=== PATIENT | male | born 1975 | race Caucasian/White ===

== ENCOUNTER 2021-02-17 15:00 | Outpatient (CLI) | payer BC, SELFPAY | END 2021-02-17 15:01 | disposition home or self-care (01) | LOC: SLEEP 02-19 16:29 | PROVIDERS: PCP Nurse Practitioner Family; Visit Provider Internal Medicine Cardiovascular Disease | DX: G47.10 Hypersomnia, unspecified (principal); G47.30 Sleep apnea, unspecified | CPT/HCPCS: G0399 ==

== ENCOUNTER 2023-01-29 15:26 | Inpatient (IN) | payer BC, SELFPAY ==
[2023-01-29] VITALS (10 sets, daily range): BP systolic 99–170; BP diastolic 76–113; PULSE 101–141; RESP 15–36; TEMP 36.6–37.1; O2SAT 95–96; BMI 46.7
--- NOTE | 2023-01-29 15:31 | ECG_ITS ---
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 Measurements Intervals [place] Rate: 140 P: 0 VT: 0 QRS: 53 QRSD: 116 T: -72 QT: 301 QTc: 461 Interpretive Statements ATRIAL FLUTTER/TACHYCARDIA WITH RAPID VENTRICULAR RESPONSE INDETERMINATE AXIS MODERATE INTRAVENTRICULAR CONDUCTION DELAY [110+ ms QRS DURATION] Electronically Signed On 01-29-2023 15:36:52 CDT by Gurjit Samuel M.D. [email or web address]/store/[id number]
--- NOTE | 2023-01-29 15:43 | XRR_ITS ---
PROCEDURE INFORMATION: Exam: XR Chest Exam date and time: 01/29/2023 3:50 PM Age: 47 years old Clinical indication: Cough and dyspnea; Additional info: Dyspnea/cough TECHNIQUE: Imaging protocol: Radiologic exam of the chest. Views: 1 view. COMPARISON: CT cervical spin wo con* [id number] 04/17/2016 6:11 PM FINDINGS: Lungs: Unremarkable. No consolidation. Pleural spaces: Unremarkable. No pleural effusion. No pneumothorax. Heart/Mediastinum: Unremarkable. No cardiomegaly. Bones/joints: Unremarkable. XR/XR chest 1V portable [id number] IMPRESSION: No acute findings.
--- NOTE | 2023-01-29 15:44 | ED_ITS ---
HPI - Arrhythmia/Palpitations General: Chief Complaint: Arrhythmia/Palpitations Stated Complaint: chest pain Time Seen by Provider: 01/29/23 15:40 Source: patient Mode of arrival: ambulatory History of Present Illness: 47-year-old male presents to the emergency room with complaint of rapid heart rate accompanied intermittently with chest pain. He has had this on and off for about 3 days now. He went to the clinic today they evaluated this and EKG found to be in A-fib with RVR and referred him to the emergency room when he arrived here via ambulance he was still in A-fib with a rate in the 140s. He was given nitro and baby aspirin in route no change in symptoms. He has no known history of arrhythmias he is not on any. He is Anticoagulants were negative inotropes. Patient was a smoker and is diabetic. He also is morbidly obese and has a history of obstructive sleep apnea MD complaint: rapid heart beat and heart racing Onset (ago): day(s) Duration: constant Severity: severe Context: occurred during rest Arrhythmia history: atrial fibrillation Associated symptoms: Deny anxiety, cough, diaphoresis, muscle cramps, nausea, paresthesias, pre-syncope, sense of impending doom, short of breath, syncope or vomiting Review of Systems Const: Denies: diaphoresis Card: Denies: syncope or pre-syncope Resp: Denies: dyspnea GI: Denies: nausea or vomiting : Denies: dysuria, urinary frequency or urinary urgency Musc: Denies: muscle cramps Skin/Breast: Denies: rash Psych: Denies: anxiety [facility] ED PFSH: Medical History (Updated 02/08/23 @ 14:23 by Brayden Israel DO) Chronic bronchitis Diabetes mellitus Dyslipidemia Edema Elevated blood pressure reading in office without diagnosis of hypertension Essential hypertension Fatigue GERD (gastroesophageal reflux disease) Hypersomnia with sleep apnea Obesity JAHAIRA treated with BiPAP Social History Smoking and tobacco/nicotine status: current every day tobacco/nicotine user Alcohol intake: never Substance/Drug Use: never Physical Exam Const: GENERAL APPEARANCE: cooperative and comfortable ORIENTATION/CONSCIOUSNESS: Yes awake, Yes oriented to person, Yes oriented to place and Yes oriented to time HENMT: COMMON NORMALS: normocephalic, atraumatic and hearing grossly normal bilaterally HEAD & SCALP: normocephalic and atraumatic Resp: COMMON NORMALS: normal respiratory effort, No retractions, No use of accessory muscles and clear to auscultation bilaterally AUSCULTATION: clear to auscultation bilaterally Cardio: COMMON NORMALS: No murmurs present (Cardio) RATE: tachycardic RHYTHM: abnormal rhythm irregularly irregular GI: COMMON NORMALS: Soft to palpation and No hepatosplenomegaly present AUSCULTATION: Yes normoactive bowel sounds PALPATION: Yes Soft to palpation, No Tenderness to palpation present (GI), No Guarding due to palpation present (GI) and Yes No hepatosplenomegaly present Extremity: COMMON NORMALS: normal to inspection, capillary refill normal, no clubbing, cyanosis or edema, no calf tenderness and no pedal edema Neuro: SENSORIUM/ORIENTATION: Yes oriented to person, Yes oriented to place and Yes oriented to time Skin: COMMON NORMALS: no rashes or lesions noted GENERAL SKIN EXAM: no rashes or lesions noted Course Vital Signs: Vital signs: Vital Signs Temperature 98.2 F 01/31/23 12:03 Pulse Rate 70 01/31/23 12:03 Respiratory Rate 17 01/31/23 12:03 Blood Pressure 115/75 01/31/23 12:03 Pulse Oximetry 95 01/31/23 12:03 Oxygen Delivery Me thod Room Air 01/31/23 12:00 Fraction of Inspir ed Oxygen 40 01/30/23 22:25 MDM - Arrhythmia/Palpitations Medical Decision Making A-fib with RVR and did show some improvement with Cardizem but we maxed out and he still not controlled will switch to amiodarone discussed with hospitalist admit orders written Medical Records I reviewed the patient's medical records. Lab Data I reviewed the patient's lab results. 01/30/23 01:36 01/30/23 01:36 Radiology Impressions Chest X-Ray 01/29/23 15:43 IMPRESSION: No acute findings. Laboratory Results WBC 11.75 10^3/uL (3.29-11.43) H 01/29/23 14:52 RBC 5.02 10^6/uL (3.85-5.65) 01/29/23 14:52 Hgb 16.10 g/dL (11.27-16.99) 01/29/23 14:52 Hct 48.1 % (37-53) 01/29/23 14:52 MCV 95.8 fl (82-101) 01/29/23 14:52 MCH 32.1 pg (27-33) 01/29/23 14:52 MCHC 33.5 g/dL (30-55) 01/29/23 14:52 RDW 12.6 % (12.1-15.1) 01/29/23 14:52 Plt Count 213 10^3/cmm (157-399) 01/29/23 14:52 MPV 8.9 fL (7.4-10.4) 01/29/23 14:52 Neut % (Auto) 63.5 % 01/29/23 14:52 Lymph % (Auto) 20.2 % 01/29/23 14:52 [place] % (Auto) 10.0 % 01/29/23 14:52 Eos % (Auto) 5.4 % 01/29/23 14:52 Baso % (Auto) 0.6 % 01/29/23 14:52 Neut # (Auto) 7.46 10^3/uL (1.8-7.7) 01/29/23 14:52 Lymph # (Auto) 2.4 10^3/uL (0.8-4.8) 01/29/23 14:52 [place] # (Auto) 1.2 10^3/uL (0.2-0.9) H 01/29/23 14:52 Eos # (Auto) 0.6 10^3/uL (0.0-0.8) 01/29/23 14:52 Baso # (Auto) 0.1 10^3/uL (0.0-0.1) 01/29/23 14:52 Nucleated RBC % (auto) 0 % 01/29/23 14:52 Nucleated RBCs # 0.0 /100WBC 01/29/23 14:52 D-Dimer <= 0.27 ug/mLFEU (0-0.59) 01/29/23 14:52 Sodium 140 mmol/L (136-145) 01/29/23 14:52 Potassium 4.1 mmol/L (3.5-5.1) 01/29/23 14:52 Chloride 103 mmol/L (98-107) 01/29/23 14:52 Carbon Dioxide 27 mmol/L (22-29) 01/29/23 14:52 Anion Gap 14.1 (5-19) 01/29/23 14:52 BUN 9 mg/dL (6-20) 01/29/23 14:52 Creatinine 0.7 mg/dL (0.7-1.2) 01/29/23 14:52 GFR Calculation 122.0 mL/min (90-130) 01/29/23 14:52 Glucose 133 mg/dL (65-115) H 01/29/23 14:52 Calculated Osmolality 291 mOsm/kg (285-295) 01/29/23 14:52 Calcium 9.3 mg/dL (8.5-10.5) 01/29/23 14:52 Iron 58 ug/dL (59-158) L 01/29/23 14:52 TIBC 290 mcg/dl 01/29/23 14:52 % Saturation 20.0 % (20-50) 01/29/23 14:52 Unsat Iron Binding 232 ug/dL (112-347) 01/29/23 14:52 Total Bilirubin 0.3 mg/dL (0.15-1.2) 01/29/23 14:52 AST 12 U/L (0-40) 01/29/23 14:52 ALT 19 U/L (0-41) 01/29/23 14:52 Alkaline Phosphatase 64 U/L (40-130) 01/29/23 14:52 Troponin T Baseline < 6 ng/L (0-15) 01/29/23 14:52 Total Protein 6.2 g/dL (6.6-8.7) L 01/29/23 14:52 Albumin 4.1 g/dL (3.5-5.2) 01/29/23 14:52 Globulin 2.1 g/dL (1.3-4.6) 01/29/23 14:52 Vitamin B12 293 pg/mL (232-1245) 01/29/23 14:52 TSH 1.55 uIU/mL (0.27-4.20) 01/29/23 14:52 All radiology interpretation(s) finalized by discharge Critical Care Time Critical Care Time: Critical Care Time: Yes Total Critical Care Time: 40 Attestation: The high probability of a clinically significant, sudden or life threatening deterioration of the patient's cardiovascular system(s) required my full and direct attention, intervention and personal management. The critical care time is as shown. This time is in addition to time spent performing any reported procedures but includes the following: [x] Data and vital sign review and interpretation [x] Patient assessment, examination and intervention [x] Documentation [x] Medication orders and management Discharge Plan Discharge Patient Disposition: Admitted As Inpatient Admit Provider: Aman Cabrera Clinical Impression: Atrial fibrillation with rapid ventricular response, JAHAIRA treated with BiPAP, Essential hypertension, Diabetes mellitus Condition: Stable Discharge Diet: Cardiac Discharge Activity: Resume usual activity and Increase activity as tolerated Coding Level of Care Code ED Junior Brand Manager for Luis Eduardo Peralta
[2023-01-29] MEDS: dilTIAZem 5 mg/mL SDV 5 mL 20 MG IVP (15:47)
[2023-01-29] MEDS: dilTIAZem 100 MG in sodium chloride 0.9% (add-van) 100 ML IV (15:54)
[2023-01-29 16:04] LABS: Basophils # 0.1 10^3/uL (0.0-0.1); Basophils % 0.6 %; Eosinophils # 0.6 10^3/uL (0.0-0.8); Eosinophils % 5.4 %; Hematocrit 48.1 % (37-53); Lymphocytes # 2.4 10^3/uL (0.8-4.8); Lymphocytes % 20.2 %; Mean Corpuscular HGB Conc 33.5 g/dL (30-55); Mean Corpuscular Hemoglobin 32.1 pg (27-33); Mean Corpuscular Volume 95.8 fl (82-101); Mean Platelet Volume 8.9 fL (7.4-10.4); Monocytes # 1.2 10^3/uL (0.2-0.9); Neutrophils # 7.46 10^3/uL (1.8-7.7); Neutrophils % 63.5 %; Nucleated Red Blood Cells % 0 %; Platelet Count 213 10^3/cmm (157-399); Red Blood Count 5.02 10^6/uL (3.85-5.65); Red Cell Distribution Width 12.6 % (12.1-15.1); White Blood Count 11.75 10^3/uL (3.29-11.43)
[2023-01-29 16:28] LABS: Troponin(5th) Baseline < 6 ng/L (0-15)
[2023-01-29 16:38] LABS: Alanine Aminotransferase 19 U/L (0-41); Albumin Level 4.1 g/dL (3.5-5.2); Alkaline Phosphatase 64 U/L (40-130); Anion Gap 14.1 (5-19); Aspartate Amino Transferase 12 U/L (0-40); Blood Urea Nitrogen 9 mg/dL (6-20); Calcium 9.3 mg/dL (8.5-10.5); Carbon Dioxide 27 mmol/L (22-29); Chloride 103 mmol/L (98-107); Globulin 2.1 g/dL (1.3-4.6); Glucose 133 mg/dL (65-115); Osmolality Calculated 291 mOsm/kg (285-295); Potassium 4.1 mmol/L (3.5-5.1); Sodium 140 mmol/L (136-145); Thyroid Stimulating Hormone 1.55 uIU/mL (0.27-4.20); Total Bilirubin 0.3 mg/dL (0.15-1.2); Total Protein 6.2 g/dL (6.6-8.7)
--- NOTE | 2023-01-29 16:41 | P.HP_ITS ---
Providers/Chief Complaint Primary Care Provider: Jean Walker Chief Complaint: chest pain History of Present Illness Xander Denise II is a 47 year old male with past medical history of obstructive sleep apnea on BiPAP, hypertension who came to the ER today with chest heaviness, chest pressure along with nausea and dizziness ongoing for last 4 days found to be in atrial fibrillation with rapid ventricular response. Patient denies any previous history. In the ER he has been given IV Cardizem and started on Cardizem drip currently running at 10 with heart rate bouncing between 1 20-1 40. Patient is sitting up in bed saturating at 95%. Review of Systems General: Reports: 10 or more systems reviewed and unremarkable except in HPI and below Const: Denies: fever(s), chills, body aches, change in appetite, change in weight, malaise, night sweats, diaphoresis, change in sleep pattern, daytime sleepiness or snoring Eyes: Denies: change in vision, blurry vision, photophobia, eye discomfort or eye discharge ENMT: Denies: throat pain, enlarged tonsils, hoarseness, mouth pain, oral sores, dry mouth, tinnitus, nasal congestion or post nasal drip Card: Denies: chest pain, palpitations, irregular heart rhythm, edema, swelling of feet/ankles, lightheadedness, syncope, pre-syncope, dyspnea on exertion, orthopnea, leg pain with exertion or acrocyanosis Resp: Denies: dyspnea, productive cough, non-productive cough, wheezing, stridor, pain on inspiration, change in phlegm color, hemoptysis or chest congestion GI: Denies: abdominal pain, nausea, vomiting, hematemesis, coffee ground emesis, dysphagia, heartburn, diarrhea, constipation, bloating, GI cramping, change in bowel habits, pain on defecation, hematochezia or melena : Denies: flank pain, difficulty urinating, dysuria, urinary frequency, urinary urgency, urinary hesitancy, urinary dribbling, difficulty starting urination, change in urine stream, nocturia or hematuria Musc: Denies: neck pain, back pain, extremity pain, joint pain, joint swel ling, joint redness, joint stiffness or limited range of motion Neuro: Denies: headache(s), numbness in extremities, weakness in extremities, sensory changes, lack of coordination, difficulty walking, frequent falls, dizziness, vertigo, confusion, Slurred speech present, difficulty communicating thoughts or seizure-like activity Psych: Denies: anxiety, depression, mood swings, panic attacks, hopelessness or irritability Endo: Denies: polyuria, polydipsia, tired all the time, cold intolerance, excessive sweating, flushing or heat intolerance Chu/Lymph: Denies: easy bruising or easy bleeding All/Imm: Denies: tongue swelling, facial swelling or acute wheezing Medications/Allergies Home Medications Medication Instructions Recorded Confirmed Last Taken Type atorvastatin 10 mg tablet 10 mg PO QAM 01/15/21 01/29/23 01/29/23 History lisinopril 10 1 tab PO QAM 01/15/21 01/29/23 01/29/23 History mg-hydrochlorothiazide 12.5 mg tablet omeprazole 20 mg capsule,delayed 20 mg PO QAM 01/15/21 01/29/23 01/29/23 History release Allergies Allergy/AdvReac Type Severity Reaction Status Date / Time No Known Allergies Allergy Verified 01/29/23 16:00 PFSH Acute PFSH: Medical History (Updated 01/29/23 @ 16:41 by Aman Cabrera MD) Chronic bronchitis Diabetes mellitus Dyslipidemia Edema Elevated blood pressure reading in office without diagnosis of hypertension Essential hypertension Fatigue GERD (gastroesophageal reflux disease) Hypersomnia with sleep apnea Obesity JAHAIRA treated with BiPAP Social History Smoking and tobacco/nicotine status: current every day tobacco/nicotine user Alcohol intake: never Substance/Drug Use: never Vitals/I&O/Wt Last Vital Signs Temp 98.7 F 01/29/23 15:27 Pulse 121 H 01/29/23 16:16 Resp 24 H 01/29/23 16:16 BP 101/76 01/29/23 16:16 Pulse Ox 95 01/29/23 16:16 O2 Del Method Room Air 01/29/23 15:27 Weight last 48 hrs Weight 147.871 kg Physical Exam Narrative: General: No acute distress, AO x3, on room air HEENT: PERRLA, pupils bilaterally equal and reactive Chest: Normal vesicular breath sounds all over lung [place] with occasional rhonchi, fine crackles in the bases CVS: S1-S2 irregularly irregular, tachycardia no gallops, no rubs Abdomen: Soft, nontender, no organomegaly, bowel sounds present, morbidly obese Neuro: No focal deficits, no facial deformity, AO x3, power 5/5 in all limbs Data 01/29/23 14:52 01/29/23 14:52 A&P Assessment and plan (1) Atrial fibrillation with rapid ventricular response: Follow-up troponin cycle. Check TSH. Check D-dimer. Currently on Cardizem drip. Heart rate bouncing between 1 20-1 40 Not rate controlled. Switch to amiodarone drip with amiodarone bolus. We will check echocardiogram when heart rate better controlled. Discussed in detail about need for anticoagulation for possible stroke prevention given atrial fibrillation. Patient is agreeable. Anticoagulation with Eliquis 5 mg twice daily. (2) JAHAIRA treated with BiPAP: Continue with home BiPAP settings. (3) Diabetes mellitus: Not on any medication. Seems to have previous history. Check A1c. Start treatment accordingly. Qualifiers: Diabetes mellitus complication status: without complication Diabetes mellitus [facility] insulin use: without general matcher use Diabetes mellitus type: type 2 Qualified Code(s): E11.9 - Type 2 diabetes mellitus without complications (4) Essential hypertension: Goal blood pressure less than 140/90 mmHg. Takes lisinopril, hydrochlorothiazide at home. Hold off on antihypertensives. Will uptitrate and start as per requirement as patient is on Cardizem drip right now. (5) Obesity: Counseled in detail about caloric intake and need for weight loss Qualifiers: Body mass index: BMI 40.0-44.9 Obesity classification: adult class 3 (BMI >= 40) Obesity type: due to excess calories Serious obesity comorbidity p resence: without serious comorbidity Qualified Code(s): E66.01 - Morbid (severe) obesity due to excess calories; Z68.41 - Body mass index [BMI] 40.0- 44.9, adult (6) Dyslipidemia: Check lipid panel. Continue with home dose of atorvastatin for now. Plan Full code Famotidine for PUD prophylaxis Eliquis will suffice for DVT prophylaxis. Admit to CSU. Attestations Medical Necessity Statement*: Admission for more than 2 midnights for management of atrial fibrillation with rapid ventricular response in a patient who is morbidly obese with history of obstructive sleep apnea. Diagnoses Atrial fibrillation with rapid ventricular response I48.91 JAHAIRA treated with BiPAP G47.33 Diabetes mellitus E11.9 Diabetes mellitus complication status: without complication Diabetes mellitus [facility] insulin use: without general matcher use Diabetes mellitus type: type 2 Essential hypertension I10 Obesity E66.01; Z68.41 Body mass index: BMI 40.0-44.9 Obesity classification: adult class 3 (BMI >= 40) Obesity type: due to excess calories Serious obesity comorbidity presence: without serious comorbidity Dyslipidemia E78.5
[2023-01-29 17:36] LABS: D Dimer <= 0.27 ug/mLFEU (0-0.59)
--- NOTE | 2023-01-29 17:43 | ECG_ITS ---
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 Measurements Intervals [place] Rate: 105 P: 0 TN: 0 QRS: 41 QRSD: 109 T: 38 QT: 358 QTc: 475 Interpretive Statements ATRIAL FLUTTER WITH RAPID VENTRICULAR RESPONSE MODERATE T-WAVE ABNORMALITY, CONSIDER INFERIOR ISCHEMIA [-0.1+ mV T-WAVE IN II/aVF] Compared to ECG 01/29/2023 15:32:37 T-wave abnormality now present Possible ischemia now present Indeterminate axis no longer present Intraventricular conduction delay no longer present Electronically Signed On 01-29-2023 23:10:21 CDT by Gurjit Samuel M.D. [email or web address]/store/OM/[id number]
[2023-01-29 18:51] LABS: Iron 58 ug/dL (59-158); Total Iron Binding Capacity 290 mcg/dl; Unsaturated Iron Binding 232 ug/dL (112-347)
[2023-01-29 19:07] LABS: Vitamin B12 293 pg/mL (232-1245)
[2023-01-29 21:02] LABS: Troponin 5 6HR Delta 0.00001 ng/L (0-12)
[2023-01-29] MEDS: famotidine 20 mg Tablet PO (21:07)
[2023-01-29] MEDS: apixaban 5 mg Tablet PO (21:07)
--- NOTE | 2023-01-29 21:43 | ECG_ITS ---
[facility] Test Date: 2023-01-29 Pat Name: Xander Denise Department: Room: 102 Gender: Male Executive Communications Manager: : 1975 Requested By: Brayden Barrientos Order Number: [id number] Gail MD: Gurjit Samuel M.D. Measurements Intervals [place] Rate: 101 P: 0 NM: 0 QRS: 68 QRSD: 106 T: 83 QT: 383 QTc: 498 Interpretive Statements ATRIAL FLUTTER WITH RAPID VENTRICULAR RESPONSE Compared to ECG 01/29/2023 18:15:33 T-wave abnormality no longer present Possible ischemia no longer present Electronically Signed On 01-29-2023 23:09:09 CDT by Gurjit Samuel M.D. [email or web address]/store/OM/[id number]
[2023-01-30] VITALS (9 sets, daily range): BP systolic 93–122; BP diastolic 77–91; PULSE 69–135; RESP 14–20; TEMP 36.6–37.2; O2SAT 93–100
[2023-01-30 02:31] LABS: Basophils # 0.1 10^3/uL (0.0-0.1); Basophils % 0.8 %; Eosinophils # 0.7 10^3/uL (0.0-0.8); Eosinophils % 6.4 %; Hematocrit 46.2 % (37-53); Lymphocytes # 3.5 10^3/uL (0.8-4.8); Lymphocytes % 30.8 %; Mean Corpuscular HGB Conc 32.7 g/dL (30-55); Mean Corpuscular Hemoglobin 31.7 pg (27-33); Mean Corpuscular Volume 97.1 fl (82-101); Mean Platelet Volume 9.2 fL (7.4-10.4); Monocytes # 1.1 10^3/uL (0.2-0.9); Monocytes % 9.8 %; Neutrophils % 51.9 %; Nucleated Red Blood Cells % 0 %; Platelet Count 265 10^3/cmm (157-399); Red Blood Count 4.76 10^6/uL (3.85-5.65); Red Cell Distribution Width 12.7 % (12.1-15.1); White Blood Count 11.19 10^3/uL (3.29-11.43)
[2023-01-30 02:47] LABS: Estmated Average Glucose 169; Hemoglobin A1C 7.5 % (4.0-6.0)
[2023-01-30 02:59] LABS: Chol HDL Ratio 3.29 mg/dL (1.0-5.00); Cholesterol 112 mg/dL (0-200); HDL Cholesterol 34 mg/dL (60-100); LDL Cholesterol Calculated 50 mg/dL (50-129); LDL HDL Ratio 1.47 RATIO (0.00-3.22); Triglycerides 141 mg/dL (0-150)
[2023-01-30 03:02] LABS: Alanine Aminotransferase 17 U/L (0-41); Albumin Level 3.6 g/dL (3.5-5.2); Alkaline Phosphatase 61 U/L (40-130); Anion Gap 11.7 (5-19); Aspartate Amino Transferase 10 U/L (0-40); Blood Urea Nitrogen 10 mg/dL (6-20); Calcium 8.9 mg/dL (8.5-10.5); Carbon Dioxide 28 mmol/L (22-29); Chloride 103 mmol/L (98-107); Creatinine Clr Calc Pharmacy 150.9274; Globulin 2.8 g/dL (1.3-4.6); Glomerular Filtration Rate 91.3 mL/min (90-130); Glucose 141 mg/dL (65-115); Magnesium 1.9 mg/dL (1.7-2.3); Osmolality Calculated 289 mOsm/kg (285-295); Phosphorus 4.4 mg/dL (2.5-4.5); Potassium 3.7 mmol/L (3.5-5.1); Sodium 139 mmol/L (136-145); Total Bilirubin 0.4 mg/dL (0.15-1.2); Total Protein 6.4 g/dL (6.6-8.7)
[2023-01-30 03:11] LABS: Folate Level 7.5 ng/mL (4.5-32.2)
--- NOTE | 2023-01-30 03:55 | PC.NURSE ---
Addendum entered by Hortencia Williamson RN 01/30/23 04:23: 5 mg metoprolol IV X1 ordered Original Note: notified Dr Mcneil of HR in 130's on amio gtt, no new orders at this time
[2023-01-30] MEDS: metoprolol tartrate 1 mg/1 mL SDV 5 mL 5 MG IVP (04:36)
[2023-01-30 06:09] LABS: Add Urine Microscopic? YES; Bilirubin Urine Neg (Negative); Blood Urine Neg (Negative); Glucose Urine UA Norm (Normal); Ketones Urine 1+ (Negative); Leukocyte Esterase Urine Negative (Negative); Nitrate Urine Negative (Negative); Protein Urine Trace (Negative); Urine Appearance Clear (CLEAR); Urobilinogen Urine Neg (Negative); pH Urine 5 (5-7)
[2023-01-30 06:10] LABS: Add Urine Culture? No; Amphetamines Screen Urine Negative (Negative); Barbiturates Screen Urine Negative (Negative); Benzodiazepines Screen Urine Negative (Negative); Cocaine Screen Urine Negative (Negative); Mucus Urine 2+ /hpf; Opiate Screen Urine Negative (Negative); PCP Screen Urine Negative (Negative); RBC Urine RARE /hpf (0-2); Squamous Epithelial Cell Urine 0-4 /hpf (0-5); THC Screen Urine Negative (Negative)
[2023-01-30 06:11] LABS: Urine Color Amber (Yellow)
[2023-01-30] MEDS: famotidine 20 mg Tablet PO ×2 (09:01→17:26)
[2023-01-30] MEDS: apixaban 5 mg Tablet PO ×2 (09:01→20:32)
[2023-01-30] MEDS: dilTIAZem 60 mg Tablet PO ×3 (09:43→20:32)
[2023-01-30] MEDS: FUROsemide 10 mg/mL SDV 4mL 40 MG IVP (09:43)
--- NOTE | 2023-01-30 15:23 | P.PN_ITS ---
Subjective Subjective: Overnight patient has remained in atrial fibrillation with rapid ventricular response on amiodarone drip which has been turned down to 0.5 as per protocol. Patient denies any active complaints. States he is feeling better. Today morning he was started on metoprolol after which his heart rate has been better controlled and been running less than 100. Patient denies any chest pain. Blood work shows stable CBC, normal CMP with A1c of 7.5, troponin cycled and negative Vitals/I&O/Wt Last Vital Signs Temp 99.0 F 01/30/23 11:08 Pulse 134 H 01/30/23 11:08 Resp 20 H 01/30/23 11:08 BP 117/91 01/30/23 11:08 Pulse Ox 95 01/30/23 11:08 O2 Del Method Nasal Cannula 01/30/23 11:08 FiO2 40 01/29/23 23:52 01/30/23 01/30/23 01/30/23 06:59 14:59 22:59 Intake Total 208.331 / 411.331 360 / 360 Balance 208.331 / 411.331 360 / 360 Weight last 48 hrs Weight 147.644 kg Weight 147.871 kg Physical Exam Narrative: General: No acute distress, AO x3, on room air, morbidly obese HEENT: PERRLA, pupils bilaterally equal and reactive Chest: Normal vesicular breath sounds all over lung [place] with occasional rhonchi, fine crackles in the bases CVS: S1-S2 irregularly irregular, tachycardia no gallops, no rubs Abdomen: Soft, nontender, no organomegaly, bowel sounds present, morbidly obese Neuro: No focal deficits, no facial deformity, AO x3, power 5/5 in all limbs Data 01/30/23 01:36 01/30/23 01:36 A&P Assessment and plan (1) Atrial fibrillation with rapid ventricular response: Troponin cycled negative, TSH normal, D-dimer negative. Continue with amiodarone drip as per protocol. Add metoprolol 50 mg twice daily. Will uptitrate keeping heart rate less than 100. Start in evening on amiodarone 400 mg twice daily once the drip finishes as per protocol. Check echocardiogram Discussed in detail about need for anticoagulation for possible stroke prevention given atrial fibrillation. Patient is agreeable. Anticoagulation with Eliquis 5 mg twice daily. (2) JAHAIRA treated with BiPAP: Continue with home BiPAP settings. (3) Diabetes mellitus: A1c 7.5. Start on insulin sliding scale and carb consistent diet. Patient would benefit from weight loss. Can try oral metformin on discharge. Start treatment accordingly. Qualifiers: Diabetes mellitus type: type 2 Diabetes mellitus senior living insulin use: without senior living use Diabetes mellitus complication status: without complication Qualified Code(s): E11.9 - Type 2 diabetes mellitus without complications (4) Essential hypertension: Goal blood pressure less than 140/90 mmHg. Takes lisinopril, hydrochlorothiazide at home. Hold off on antihypertensives. Continue with metoprolol for now. Blood pr essure is at goal. Uptitrate as per goal blood pressures. (5) Obesity: Counseled in detail about caloric intake and need for weight loss Qualifiers: Obesity type: due to excess calories Obesity classification: adult class 3 (BMI >= 40) Serious obesity comorbidity presence: without serious comorbidity Body mass index: BMI 40.0-44.9 Qualified Code(s): E66.01 - Morbid (severe) obesity due to excess calories; Z68.41 - Body mass index [BMI] 40.0- 44.9, adult (6) Dyslipidemia: Appreciate lipid panel. Continue with home dose of atorvastatin for now. Plan Full code Famotidine for PUD prophylaxis Eliquis will suffice for DVT prophylaxis. Attestations Medical Necessity Statement*: Requires further hospitalization for management of atrial flutter with fibrillation with rapid ventricular response. Diagnoses Atrial fibrillation with rapid ventricular response I48.91 JAHAIRA treated with BiPAP G47.33 Diabetes mellitus E11.9 Diabetes mellitus type: type 2 Diabetes mellitus computer terminal operator insulin use: without computer terminal operator use Diabetes mellitus complication status: without complication Essential hypertension I10 Obesity E66.01; Z68.41 Obesity type: due to excess calories Obesity classification: adult class 3 (BMI >= 40) Serious obesity comorbidity presence: without serious comorbidity Body mass index: BMI 40.0-44.9 Dyslipidemia E78.5
--- NOTE | 2023-01-30 15:25 | USCV_ITS ---
Xander Denise Age: 47 Gender: M : 1975 Exam Date: 01/30/2023 16:35 Ordering Phys: Aman Cabrera MD Technologist: Liban Watts [place] [facility] [place]: A FIB BP: 122 / 82 HR: 84 Rhythm: Atrial fibrillation Technical Quality: Adequate MEASUREMENTS (Male / Female) Normal Values 2D ECHO LVOT Diameter 2.1 cm LV Ejection Fraction MOD 2C 44.1 % LV Ejection Fraction 2C AL 45.6 % LA Diameter 3.7 cm LA Width 3.9 cm LA Height 4.4 cm RA Width 4.4 cm RA Height 5.5 cm Aorta at Sinotubular Diameter 2.4 cm IVC Diameter 2.8 cm M-MODE Aortic Annulus Diameter 3.0 cm LA Ao Ratio MM 1.4 MV E Point Septal Separation 0.6 cm DOPPLER AV Peak Velocity 92.0 cm/s LVOT Peak Velocity 73.0 cm/s AV Area Cont Eq vti 2.9 cm squared AV Area Cont Eq pk 2.6 cm squared MV Peak Velocity 135.0 cm/s MV E' Velocity 4.0 cm/s Right Atrial Pressure 8.0 mmHg PV Peak Velocity 56.0 cm/s RV Acceleration Time 0.1 s RV Ejection Time 0.4 s RV AcT/ET 0.3 FINDINGS Left Ventricle Normal left ventricular cavity size. Normal left ventricular wall thickness. Mildly decreased left ventricular systolic function. Left ventricular ejection fraction is estimated at 45 %. Mild global hypokinesis. Rhythm precludes evaluation of diastolic function. Right Ventricle Normal right ventricular size and systolic function. Right Atrium Normal right atrial size. Left Atrium Normal left atrial size. Mitral Valve Structurally normal mitral valve. No mitral valve stenosis. Aortic Valve Aortic valve not well visualized. Tricuspid Valve Structurally normal tricuspid valve. No tricuspid valve stenosis. No tricuspid valve regurgitation. Pulmonic Valve Pulmonic valve not well visualized. No pulmonary valve stenosis. No pulmonary valve regurgitation. Pericardium No pericardial effusion. Aorta Normal size aortic root and proximal ascending aorta. IVC Dilated IVC with normal respiratory variation. CONCLUSIONS 1. This is a technically difficult study. Optison was used per protocol. 2. Normal left ventricular cavity size and wall thickness. Mildly decreased left ventricular systolic function. Left ventricular ejection fraction is estimated at 45 %. Mild global hypokinesis. 3. No significant valvular abnormality. 4. No prior similar studies to compare. Carlene Gurrola MD (Electronically Signed) Final Date: 31 January 2023 11:13 S
[2023-01-30] MEDS: perflutren protein-a microsphr 0.22 mg/mL SDV 3 mL IV (17:18)
[2023-01-30] MEDS: amiodarone 200 mg Tablet 400 MG PO (17:26)
[2023-01-30 18:15] LABS: Glucose Point of Care 131 mg/dL (70-110)
[2023-01-30 21:10] LABS: Glucose Point of Care 193 mg/dL (70-110)
[2023-01-31] VITALS (7 sets, daily range): BP systolic 114–150; BP diastolic 73–75; PULSE 67–78; RESP 15–20; TEMP 36.4–37; O2SAT 93–100
[2023-01-31] MEDS: dilTIAZem 60 mg Tablet PO ×2 (04:21→11:00)
[2023-01-31 06:28] LABS: Glucose Point of Care 137 mg/dL (70-110)
--- NOTE | 2023-01-31 09:55 | PM.DCS ---
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 insulin use: without termite technician use Diabetes mellitus type: type 2 Qualified Code(s): E11.9 - Type 2 diabetes mellitus without complications (4) Essential hypertension: Status: Acute (5) Obesity: Status: Acute Qualifiers: Body mass index: BMI 40.0-44.9 Obesity classification: adult class 3 (BMI >= 40) Obesity type: due to excess calories Serious obesity comorbidity presence: without serious comorbidity Qualified Code(s): E66.01 - Morbid (severe) obesity due to excess calories; Z68.41 - Body mass index [BMI] 40.0-44.9, adult (6) Dyslipidemia: Status: Acute Reason for Visit Reason for Visit: chest pain Hospital Course Hospital Course Xander Denise II is a 47 year old male with past medical history of obstructive sleep apnea on BiPAP, hypertension who came to the ER today with chest heaviness, chest pressure along with nausea and dizziness ongoing for last 4 days found to be in atrial fibrillation with rapid ventricular response.? Patient denies any previous history. In the ER he has been given IV Cardizem and started on Cardizem drip currently running at 10 with heart rate bouncing between 1 20-1 40.? Patient is sitting up in bed saturating at 95%. Patient was admitted to the hospital further evaluation and management of atrial flutter fibrillation with rapid ventricular response. Due to poor response to Cardizem he was switched over to IV amiodarone which was changed to oral Along with that oral metoprolol was added. He responded well to the treatment and rate has been controlled for last 24 hours at his baseline activities. Echocardiogram was done which showed EF of 45% with global hypokinesia. Patient carries a remote past history of type 2 diabetes mellitus which she is not aware of. A1c was checked and found to be around 7.5. He has been discharged on oral metformin. Medication changes were discussed in detail with patient at bedside. He is agreeable. He is been discharged in hemodynamically stable condition with advised to follow-up with his primary care provider within next 1 week. He is to take amiodarone 400 mg twice daily for 1 week followed by 200 mg twice daily for 1 week followed by 200 mg daily. He will continue using his BiPAP as before. Physical Exam Narrative: General: No acute distress, AO x3, on room air, morbidly obese HEENT: PERRLA, pupils bilaterally equal and reactive Chest: Normal vesicular breath sounds all over lung [place] with occasional rhonchi, fine crackles in the bases CVS: S1-S2 irregularly irregular, tachycardia no gallops, no rubs Abdomen: Soft, nontender, no organomegaly, bowel sounds present, morbidly obese Neuro: No focal deficits, no facial deformity, AO x3, power 5/5 in all limbs Discharge Data Studies Completed and Pending Completed Studies During Hospitalization Category Date Time Status XR chest 1V portable [id number] Stat Exams 01/29/23 15:43 Completed Pending at discharge Category Date Time Status CV. echo wo/w contrast [id number] Routine Ultrasound 01/30/23 15:25 Taken Radiology Impressions Chest X-Ray 01/29/23 15:43 IMPRESSION: No acute findings. Laboratory Results WBC 11.19 10^3/uL (3.29-11.43) 01/30/23 01:36 RBC 4.76 10^6/uL (3.85-5.65) 01/30/23 01:36 Hgb 15.10 g/dL (11.27-16.99) 01/30/23 01:36 Hct 46.2 % (37-53) 01/30/23 01:36 MCV 97.1 fl (82-101) 01/30/23 01:36 MCH 31.7 pg (27-33) 01/30/23 01:36 MCHC 32.7 g/dL (30-55) 01/30/23 01:36 RDW 12.7 % (12.1-15.1) 01/30/23 01:36 Plt Count 265 10^3/cmm (157-399) 01/30/23 01:36 MPV 9.2 fL (7.4-10.4) 01/30/23 01:36 Neut % (Auto) 51.9 % 01/30/23 01:36 Lymph % (Auto) 30.8 % 01/30/23 01:36 [place] % (Auto) 9.8 % 01/30/23 01:36 Eos % (Auto) 6.4 % 01/30/23 01:36 Baso % (Auto) 0.8 % 01/30/23 01:36 Neut # (Auto) 5.80 10^3/uL (1.8-7.7) 01/30/23 01:36 Lymph # (Auto) 3.5 10^3/uL (0.8-4.8) 01/30/23 01:36 [place] # (Auto) 1.1 10^3/uL (0.2-0.9) H 01/30/23 01:36 Eos # (Auto) 0.7 10^3/uL (0.0-0.8) 01/30/23 01:36 Baso # (Auto) 0.1 10^3/uL (0.0-0.1) 01/30/23 01:36 Nucleated RBC % (auto) 0 % 01/30/23 01:36 Nucleated RBCs # 0.0 /100WBC 01/30/23 01:36 D-Dimer <= 0.27 ug/mLFEU (0-0.59) 01/29/23 14:52 Sodium 139 mmol/L (136-145) 01/30/23 01:36 Potassium 3.7 mmol/L (3.5-5.1) 01/30/23 01:36 Chloride 103 mmol/L (98-107) 01/30/23 01:36 Carbon Dioxide 28 mmol/L (22-29) 01/30/23 01:36 Anion Gap 11.7 (5-19) 01/30/23 01:36 BUN 10 mg/dL (6-20) 01/30/23 01:36 Creatinine 0.9 mg/dL (0.7-1.2) 01/30/23 01:36 GFR Calculation 91.3 mL/min (90-130) 01/30/23 01:36 Glucose 141 mg/dL (65-115) H 01/30/23 01:36 POC Glucose 137 mg/dL (70-110) H 01/31/23 06:15 Estimat Average Glucose 169 01/30/23 01:36 Hemoglobin A1c 7.5 % (4.0-6.0) H 01/30/23 01:36 Calculated Osmolality 289 mOsm/kg (285-295) 01/30/23 01:36 Calcium 8.9 mg/dL (8.5-10.5) 01/30/23 01:36 Phosphorus 4.4 mg/dL (2.5-4.5) 01/30/23 01:36 Magnesium 1.9 mg/dL (1.7-2.3) 01/30/23 01:36 Iron 58 ug/dL (59-158) L 01/29/23 14:52 TIBC 290 mcg/dl 01/29/23 14:52 % Saturation 20.0 % (20-50) 01/29/23 14:52 Unsat Iron Binding 232 ug/dL (112-347) 01/29/23 14:52 Total Bilirubin 0.4 mg/dL (0.15-1.2) 01/30/23 01:36 AST 10 U/L (0-40) 01/30/23 01:36 ALT 17 U/L (0-41) 01/30/23 01:36 Alkaline Phosphatase 61 U/L (40-130) 01/30/23 01:36 Troponin T Baseline < 6 ng/L (0-15) 01/29/23 14:52 Troponin T Hi Sens 6Hr 6.0 ng/L (0-15) 01/29/23 20:38 Troponin T Hi Sens 6Hr Delta 0.36050 ng/L (0-12) 01/29/23 20:38 Total Protein 6.4 g/dL (6.6-8.7) L 01/30/23 01:36 Albumin 3.6 g/dL (3.5-5.2) 01/30/23 01:36 Globulin 2.8 g/dL (1.3-4.6) 01/30/23 01:36 Triglycerides 141 mg/dL (0-150) 01/30/23 01:36 Cholesterol 112 mg/dL (0-200) 01/30/23 01:36 LDL Cholesterol, Calc 50 mg/dL (50-129) 01/30/23 01:36 HDL Cholesterol 34 mg/dL (60-100) L 01/30/23 01:36 LDL/HDL Ratio 1.47 RATIO (0.00-3.22) 01/30/23 01:36 Cholesterol/HDL Ratio 3.29 mg/dL (1.0-5.00) 01/30/23 01:36 Vitamin B12 293 pg/mL (232-1245) 01/29/23 14:52 Folate 7.5 ng/mL (4.5-32.2) 01/30/23 01:36 TSH 1.55 uIU/mL (0.27-4.20) 01/29/23 14:52 Urine Color Elise (Yellow) 01/30/23 05:47 Urine Appearance Clear (CLEAR) 01/30/23 05:47 Urine pH 5 (5-7) 01/30/23 05:47 Ur Specific Beverly 1.030 (1.005-1.030) 01/30/23 05:47 Urine Protein Trace (Negative) 01/30/23 05:47 Urine Glucose (UA) Norm (Normal) 01/30/23 05:47 Urine Ketones 1+ (Negative) H 01/30/23 05:47 Urine Blood Neg (Negative) 01/30/23 05:47 Urine Nitrate Negative (Negative) 01/30/23 05:47 Urine Bilirubin Neg (Negative) 01/30/23 05:47 Urine Urobilinogen Neg mg/dL (Negative) 01/30/23 05:47 Ur Leukocyte Esterase Negative (Negative) 01/30/23 05:47 Urine RBC Rare /hpf (0-2) 01/30/23 05:47 Urine WBC None /hpf (0-5) 01/30/23 05:47 Ur Squamous Epith Cells 0-4 /hpf (0-5) H 01/30/23 05:47 Amorphous Sediment Not Reportable 01/30/23 05:47 Urine Bacteria None /hpf (NONE) 01/30/23 05:47 Urine Mucus 2+ /hpf 01/30/23 05:47 Urine Opiates Screen Negative ng/mL (Negative) 01/30/23 05:47 Ur Barbiturates Screen Negative ng/mL (Negative) 01/30/23 05:47 Ur Phencyclidine Scrn Negative ng/mL (Negative) 01/30/23 05:47 Ur Amphetamines Screen Negative ng/mL (Negative) 01/30/23 05:47 U Benzodiazepines Scrn Negative ng/mL (Negative) 01/30/23 05:47 Urine Cocaine Screen Negative ng/mL (Negative) 01/30/23 05:47 U Marijuana (THC) Screen Negative ng/mL (Negative) 01/30/23 05:47 Imaging Echo: Radiologist's impression: ?CONCLUSIONS ?1.? This is a technically difficult study.? Optison was used per ?protocol. ?2.? Normal left ventricular cavity size and wall thickness. ?Mildly decreased left ventricular systolic function. Left ?ventricular ejection fraction is estimated at 45 %.? Mild global ?hypokinesis. ?3.? No significant valvular abnormality. ?4.? No prior similar studies to compare. ?Carlene Gurrola MD ?(Electronically Signed) ?Final Date:? ? ? 31 January 2023 Vitals Last Vital Signs Temp 98.2 F 01/31/23 08:00 Pulse 70 01/31/23 08:00 Resp 17 01/31/23 08:00 BP 115/75 01/31/23 08:00 Pulse Ox 95 01/31/23 08:00 O2 Del Method Room Air 01/31/23 08:00 FiO2 40 01/30/23 22:25 Discharge Plan Discharge Patient Disposition: Home Condition: Stable Prescriptions: New Eliquis 5 mg Tablet 5 mg PO BID@0900,2100 Qty: 60 0RF amiodarone 200 mg tablet 200 mg PO BID Qty: 60 0RF Rx Instructions: 400 twice daily for 7 days, then 200 twice daily for 7 days then 200 daily diltiazem HCl [Cardizem CD] 120 mg capsule,extended release 24hr 120 mg PO BID Qty: 60 0RF metformin 1,000 mg tablet 1,000 mg PO BIDWMEAL Qty: 60 0RF furosemide [Lasix] 40 mg tablet 40 mg PO DAILY Qty: 30 0RF Continued omeprazole 20 mg capsule,delayed release(DR/EC) 20 mg PO QAM atorvastatin 10 mg tablet 10 mg PO QAM Discontinued lisinopril-hydrochlorothiazide 10-12.5 mg tablet 1 tab PO QAM Discharge Orders: Discharge Order (Routine); Ordered 01/31/23 Ordered By: Aman Cabrera Referrals: Jean Walker [Primary Care Provider] - 1 week Discharge Diet: Cardiac Discharge Activity: Resume usual activity and Increase activity as tolerated Patient Instructions: Opioid Safety Activity Restrictions/Additional Instructions: Your blood pressure medications have been changed. Take Cardizem 120 mg twice daily along with amiodarone. Amiodarone will be tapered as below. Take 400 mg twice daily for 7 days followed by 200 mg twice daily for 7 days followed by 200 mg daily. You also have diabetes for which continue with diet modifications were discussed in detail. You have been started on metformin 1000 mg twice daily. You also take Lasix 40 mg oral daily. Please follow-up with a primary care provider within next 1 week. Discharge Attestations Time Spent in Discharge Care*: greater than 30 min Specific Discharge Activities: educating patient, educating and/or supporting family/caregiver, discussing with pcp/other providers, discussing with showcase trimmer/social workers/dc planners, documenting/other paperwork and evaluating patient/reviewing data Quality Metrics Clinical Quality Measures [ No reported AMI, CVA or VTE this stay] Coding Level of Care Code 98759 Total time (in minutes) for Discharge: 60 Diagnoses Atrial fibrillation with rapid ventricular response I48.91 JAHAIRA treated with BiPAP G47.33 Diabetes mellitus E11.9 Diabetes mellitus complication status: without complication Diabetes mellitus [facility] insulin use: without [facility] use Diabetes mellitus type: type 2 Essential hypertension I10 Obesity E66.01; Z68.41 Body mass index: BMI 40.0-44.9 Obesity classification: adult class 3 (BMI >= 40) Obesity type: due to excess calories Serious obesity comorbidity presence: without serious comorbidity Dyslipidemia E78.5
[2023-01-31] MEDS: apixaban 5 mg Tablet PO (10:01)
[2023-01-31] MEDS: famotidine 20 mg Tablet PO (10:01)
[2023-01-31] MEDS: amiodarone 200 mg Tablet 400 MG PO (10:01)
--- NOTE | 2023-01-31 12:02 | PC.NURSE ---
gilmar hollis provided to pt
[2023-01-31 12:50] LABS: Glucose Point of Care 139 mg/dL (70-110)
--- NOTE | 2023-01-31 13:50 | PC.NURSE ---
Discharge Note Patient discharged to home via private vehicle accompanied by spouse. Discharge instructions reviewed with patient and/or payable representative. Mobile pharmacy medications and/or prescriptions provided. Belongings/home medications returned.
== END 2023-01-31 13:50 | disposition home or self-care (01) | DRG 309 ==
LOC: ER 15:55 → CSU 16:47
PROVIDERS: Admitting Provider Student in an Organized Health Care Education/Training Program; Emergency Provider Family Medicine; PCP Student in an Organized Health Care Education/Training Program; Visit Provider Student in an Organized Health Care Education/Training Program
DX: I48.91 Unspecified atrial fibrillation (principal); Z68.42 Body mass index [BMI] 45.0-49.9, adult; G47.33 Obstructive sleep apnea (adult) (pediatric); G47.10 Hypersomnia, unspecified; Z99.89 Dependence on other enabling machines and devices; I10 Essential (primary) hypertension; E11.9 Type 2 diabetes mellitus without complications; E66.01 Morbid (severe) obesity due to excess calories; E78.5 Hyperlipidemia, unspecified; K21.9 Gastro-esophageal reflux disease without esophagitis; F17.210 Nicotine dependence, cigarettes, uncomplicated
CPT/HCPCS: 36415; 36416; 71045; 80053; 80061; 80306; 81001; 82607; 82746; 82962; 83036; 83540; 83550; 83735; 84100; 84443; 84484; 85025; 85378; 93005; 94660; 94664; 96365; 96375; 96376; 99285; C8929; J0282; J1940; J3490; J7060; Q9956

== ENCOUNTER → 2023-02-09 11:19 | Outpatient (BNVA) | payer BC, SELFPAY | PROVIDERS: PCP Family Medicine; Visit Provider Internal Medicine Cardiovascular Disease | DX: I48.92 Unspecified atrial flutter (principal); R07.9 Chest pain, unspecified | CPT/HCPCS: 93005 ==

== ENCOUNTER 2023-03-12 11:02 | Day surgery (SDC) | payer BC, SELFPAY ==
--- NOTE | 2023-03-12 11:38 | USCV_ITS ---
Xander Denise Age: 47 Gender: M : 1975 Exam Date: 03/12/2023 12:33 Ordering Phys: Carlene Gurrola MD ([email or web address]) Technologist: CATALINO [place] [facility] [place]: A FIB W/CV BP: 135 / 94 HR: 112 Rhythm: Sinus Technical Quality: Adequate MEASUREMENTS (Male / Female) Normal Values Medications Patient given IV sedation by anesthesia service, for details please refer to the anesthesia report. Complications Intubation easy. Attempts x 1. No blood on probe post procedure. Proc. Components The patient was brought to the [facility] examination room in a fasting state after obtaining an informed consent. The [facility] probe was passed into the posterior pharynx , mid-esophagus, distal esophagus, and gastric fundus. FINDINGS Left Ventricle Normal left ventricular cavity size. Mildly decreased left ventricular systolic function. Left ventricular ejection fraction is estimated at 50 %. Mild global left ventricular hypokinesis. Right Ventricle Normal right ventricular size and systolic function. Right Atrium Normal right atrial size. Left Atrium Mildly increased left atrial size. LA Appendage Normal left atrial appendage. No thrombus visualized in the left atrial appendage. IA Septum Normal interatrial septum. No patent foramen ovale. No evidence for an atrial septal defect. Mitral Valve Structurally normal mitral valve. No mitral valve stenosis. Trace mitral valve regurgitation. Aortic Valve Structurally normal trileaflet aortic valve. No aortic valve stenosis. No aortic valve regurgitation. Tricuspid Valve Structurally normal tricuspid valve. No tricuspid valve stenosis. Pulmonic Valve Structurally normal pulmonic valve. Trace pulmonary valve regurgitation. Pericardium No pericardial effusion. Aorta Normal size aortic root and proximal ascending aorta. No aortic dilation aneurysm or dissection. CONCLUSIONS 1. Normal left ventricular cavity size. Mildly decreased left ventricular systolic function. Left ventricular ejection fraction is estimated at 50 %. Mild global left ventricular hypokinesis. 2. No left atrial or left atrial appendage thrombus. Carlene Gurrola MD (Electronically Signed) Final Date: 15 March 2023 17:42 S
--- NOTE | 2023-03-12 11:38 | ECG_ITS ---
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 Measurements Intervals [place] Rate: 95 P: 0 DE: 0 QRS: 57 QRSD: 98 T: 26 QT: 347 QTc: 438 Interpretive Statements ATRIAL FLUTTER ABNORMAL RHYTHM ECG Compared to ECG 02/09/2023 11:28:40 Intraventricular conduction delay no longer present T-wave abnormality no longer present Electronically Signed On 03-12-2023 11:58:44 COUNTY AUDITOR by Carlene Gurrola M.D. [id number]
[2023-03-12 12:00] VITALS: BP 146/97; PULSE 89; RESP 18; TEMP 36.6; O2SAT 94; BMI 46.7
--- NOTE | 2023-03-12 12:03 | ANES.PREANE2 ---
Pre-Anesthetic Assessment Height/Weight: Height 1.78 m Operation Date: 03/12/23 12:00 Proposed Procedures p [id number] [facility] / Cardio version I48.92 I48.91(Not Applicable) - Carlene Gurrola MD s Cardioversion(Not Applicable) - Carlene Gurrola MD Familial anesthetic complications: sister had allergic reaction after MVA and ginny were going to reconstruct her pelvis, patient unfortunately provides no other details Was Beta Wes taken within 24 hours: N/A Was Clonidine taken within 24 hours: N/A Last intake: > 8hrs Social Tobacco and No alcohol Exam alert, oriented x 3, clear to auscultation bilaterally and regular rate & rhythm Airway Mallampati: Class IV Dentition: chipped Comments: Comments: christiansen, large tongue and neck Pulmonary Sleep Apnea CV/HEM Atrial Fibrillation, Congestive Heart Failure and Hypertension GI Gastroesophageal Reflux Disease Metabolic Diabetes Mellitus, Hyperlipidemia and Morbid Obesity Anesthetic Plan ASA status: 4 Anesthesia: MAC Risk of > 500 ml blood loss (7ml/kg in children): No Medications/Allergies Home Medications Medication Instructions Recorded Confirmed Last Taken Type atorvastatin 10 mg tablet 10 mg PO QAM 01/15/21 03/12/23 03/11/23 History omeprazole 20 mg capsule,delayed 20 mg PO QAM 01/15/21 03/12/23 03/09/23 History release amiodarone 200 mg tablet 200 mg PO BID #60 tabs 01/31/23 03/12/23 03/10/23 Rx apixaban 5 mg tablet (Eliquis) 5 mg PO BID@0900,2100 #60 tabs 01/31/23 03/12/23 03/12/23 Rx furosemide 40 mg tablet (Lasix) 40 mg PO DAILY #30 tabs 01/31/23 03/12/23 03/12/23 Rx metformin 1,000 mg tablet 1,000 mg PO DAILY 03/10/23 03/12/23 03/09/23 History Allergies Allergy/AdvReac Type Severity Reaction Status Date / Time No Known Allergies Allergy Verified 03/12/23 11:58 [facility] Anesthesia Medical History (Updated 02/09/23 @ 10:59 by Carlene Gurrola MD) CHF (congestive heart failure), NYHA class III Elevated blood pressure reading in office without diagnosis of hypertension JAHAIRA treated with BiPAP Dyslipidemia GERD (gastroesophageal reflux disease) Obesity Hypersomnia with sleep apnea Fatigue Edema Chronic bronchitis Diabetes mellitus Essential hypertension Social History Smoking and tobacco/nicotine status: current every day tobacco/nicotine user Alcohol intake: never Substance/Drug Use: never Data Anesthesia Cardiac Studies: Echocardiogram 01/30/23
[2023-03-12] MEDS: sodium chloride 0.9% 1,000 ML 30 ML IV (12:08)
[2023-03-12 12:12] LABS: Glucose Point of Care 116 mg/dL (70-110)
--- NOTE | 2023-03-12 12:12 | W.PM.OPSFHP ---
Same Day Surgery H&P Indication for Procedure/HPI DATE OF PROCEDURE: March 12, 2023 CHIEF COMPLAINT/INDICATIONFOR SURGICAL PROCEDURE: atrial flutter, concern for tachycardia induced CM PREOP DIAGNOSIS: symptomatic atrial flutter PLANNED PROCEDURE: Operation Date: 03/12/23 12:00 Proposed Procedures p [id number] [facility] / Cardio version I48.92 I48.91(Not Applicable) - MD prerna Spencer Cardioversion(Not Applicable) - Carlene Gurrola MD 47 yo man with PMHx of HTN, dyslipidemia,JAHAIRA, DM-2, smoker and persistent atrial flutter. He was found to have severe sleep apnea on home sleep study but is non compliant with BiPaP. He is still smoking 1 and 1 and 1/2 PPD. 02/09/23 He was hospitalized for atrial flutter with RVR and was started on amiodarone. Echo showed LVEF of 45%. He continues to have SOB and tachycardia. He has not been able to work last few days. He is still in atrial flutter with RVR and remains symptomatic. 03/12/23 He is here today for [facility]/CV. EKG today shows persistent atrial flutter Medications/Allergies* Home Medications Medication Instructions Recorded Confirmed Type atorvastatin 10 mg tablet 10 mg PO QAM 01/15/21 03/12/23 History omeprazole 20 mg capsule,delayed 20 mg PO QAM 01/15/21 03/12/23 History release metformin 1,000 mg tablet 1,000 mg PO DAILY 03/10/23 03/12/23 History Allergies/Adverse Reactions Allergy/AdvReac Type Severity Reaction Status Date / Time No Known Allergies Allergy Verified 03/12/23 11:58 Current Medications: Generic Name Dose Route Start Last Admin Trade Name Freq PRN Reason Stop Dose Admin Sodium Chloride 1,000 mls @ 30 mls/hr 03/12/23 11:30 03/12/23 12:08 Sodium Chloride 0.9% IV 03/13/23 11:29 30 mls/hr .Q24H SHELLY Administration Pertinent History/Comorbid Conditions* Medical History (Updated 02/09/23 @ 10:59 by Carlene Gurrola MD) CHF (congestive heart failure), NYHA class III Elevated blood pressure reading in office without diagnosis of hypertension JAHAIRA treated with BiPAP Dyslipidemia GERD (gastroesophageal reflux disease) Obesity Hypersomnia with sleep apnea Fatigue Edema Chronic bronchitis Diabetes mellitus Essential hypertension Social History Smoking and tobacco/nicotine status: current every day tobacco/nicotine user Alcohol intake: never Substance/Drug Use: never Pertinent Exam Findings alert, oriented x 3, clear to auscultation bilaterally and rate & rhythm not regular (irregular rate) Recommendations Surgery/Procedure today Coding Level of Care Code Acute Code for [facility] Fwl[facility]
[2023-03-12 12:50] VITALS: BP 114/82; PULSE 99; RESP 16; TEMP 36.5; O2SAT 94
--- NOTE | 2023-03-12 12:50 | PM.PROC ---
Procedure Note: Date of procedure: 03/12/23 Pre-procedure diagnosis: symptomatic atrial flutter Post-procedure diagnosis: same Procedure: [facility]/CV Other Information: [facility] Procedure note Indication: symptomatic atrial flutter Sedation: Propofol by anesthesia The patient was brought down to the GI lab. Procedure was explained to the patient in detail and informed consent was obtained. Timeout was called. After achieving adequate sedation, the probe was inserted on first attempt. No blood on the probe post procedure. Prelim report: Normal left ventricle size and mildly decreased systolic function. No left atrial or left atrial appendage mass or thrombus visualized. Full report to follow. Cardioversion procedure note. Indication: Symptomatic atrial flutter Anticoagulation: Eliquis After ensuring no LA/DAVID thrombus, Pads were placed anteroposteriorly. He received 129 J of synchronized biphasic shock ?1 with druze of normal sinus rhythm. Patient tolerated the procedure well. Recovery: in unit Disposition: Patient to be discharged later today Coding Level of Care Code Acute Code for Chg Fwd
[2023-03-12 13:05] VITALS: BP 113/84; PULSE 94; RESP 16; O2SAT 92
--- NOTE | 2023-03-12 13:07 | ECG_ITS ---
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 Measurements Intervals [place] Rate: 89 P: 75 [place]: 195 QRS: 66 QRSD: 104 T: 76 QT: 394 QTc: 481 Interpretive Statements SINUS RHYTHM Compared to ECG 03/12/2023 11:50:06 Atrial flutter no longer present Electronically Signed On 03-13-2023 6:12:32 DOG WARDEN by Carlene Gurrola M.D. [id number]
[2023-03-12 13:14] VITALS: O2SAT 94
[2023-03-12 13:15] VITALS: BP 113/76; PULSE 93; RESP 18; O2SAT 96
--- NOTE | 2023-03-12 13:35 | ANE.PACU2 ---
Inpatient post-anesthesia follow up: Airway intact: Yes Vital signs: Temperature 97.7 F Pulse Rate 93 Respiratory Rate 18 Blood Pressure 113/76 Pulse Oximetry 96 Oxygen Delivery Me thod Room Air Oxygen Flow Rate 2 Fraction of Inspir ed Oxygen Hydration adequate: Yes Nausea and vomiting: No Pain level: 1 Mental status: Baseline
== END 2023-03-12 13:36 | disposition home or self-care (01) ==
PROVIDERS: PCP Family Medicine; Visit Provider Internal Medicine Cardiovascular Disease
PROC: (CPT 93312; principal; 2023-03-12 12:00)
PROC: 5A2204Z Restoration of Cardiac Rhythm, Single (ICD-10-PCS; 2023-03-12 12:00)
DX: I48.91 Unspecified atrial fibrillation (principal); E78.5 Hyperlipidemia, unspecified; G47.33 Obstructive sleep apnea (adult) (pediatric); E11.9 Type 2 diabetes mellitus without complications; F17.200 Nicotine dependence, unspecified, uncomplicated; Z91.199 Patient's noncompliance with other medical treatment and regimen due to unspecified reason; I11.0 Hypertensive heart disease with heart failure; I50.9 Heart failure, unspecified; Z79.01 Long term (current) use of anticoagulants; K21.9 Gastro-esophageal reflux disease without esophagitis; E66.01 Morbid (severe) obesity due to excess calories; Z68.42 Body mass index [BMI] 45.0-49.9, adult
CPT/HCPCS: 36416; 82962; 92960; 93005; 93312; 93320; 93325; J2371; J2704; J7030